=== PATIENT | female | born 1975 | race Two or more races ===

== ENCOUNTER 2019-05-29 12:02 | Emergency (ER) | payer SELFPAY ==
[~2019-05-29] VITALS: Ht 154.9 cm; Wt 70.3 kg
[2019-05-29 15:38] VITALS: BP 111/71
[2019-05-29] MEDS ORDERED: KETOROLAC TROMETH 60MG/2ML VIAL IM ONE (16:00)
== END 2019-05-29 16:19 | disposition home or self-care (01) ==
LOC: ER 12:11
DX: S43.402A Unspecified sprain of left shoulder joint, initial encounter (principal); X50.0XXA Overexertion from strenuous movement or load, initial encounter; Y93.89 Activity, other specified; Y99.8 Other external cause status; Y92.89 Other specified places as the place of occurrence of the external cause
CPT/HCPCS: 73030; 96372; 99283; J1885